=== PATIENT | female | born 1990 | race Asian ===

== ENCOUNTER 2021-12-16 12:01 | Outpatient (REF) | payer OTHER, SELFPAY ==
[2021-12-16 12:08] LABS: MANUAL DIFF FLAG NO
[2021-12-16 12:41] LABS: Basophils Absolute Auto 0.1 X10*3/uL (0.0-0.2); Basophils Percent Auto 0.7 % (0-2); Eosinophils Absolute Auto 0.2 X10*3/uL (0.0-0.4); Hematocrit 43.1 % (37.0-47.0); Hemoglobin 14.1 g/dl (12.0-16.0); Imm Gran Abs Auto 0.02 X10*3/uL (0.00-0.03); Imm Gran Pct Auto 0.3 % (0.0-0.4); Lymphocytes Absolute Auto 3.2 X10*3/uL (1.2-4.9); Lymphocytes Percent Auto 42.6 % (20-40); Mean Corpuscular HGB Conc 32.7 g/dl (31.0-35.0); Mean Corpuscular Volume 91.7 fL (80.0-98.0); Mean Platelet Volume 12.1 fL (9.4-12.3); Monocytes Absolute Auto 0.4 X10*3/uL (0.1-1.2); Monocytes Percent Auto 5.1 % (2-11); Neutrophils Absolute Auto 3.7 x10*3/uL (2.0-8.3); Neutrophils Percent Auto 49.3 % (45-73); Platelet Count 243 X10*3/uL (160-400); Red Cell Distribution Width 13.4 % (11.0-16.0); White Blood Count 7.4 X10*3/uL (4.8-10.8)
[2021-12-16 13:16] LABS: Alanine Aminotransferase 14 U/L (0-31); Alkaline Phosphatase 39 U/L (39-117); Anion Gap 11 (12-20); Aspartate Amino Transferase 17 U/L (5-31); Bilirubin Total 0.7 mg/dL (0.0-1.0); Blood Urea Nitrogen 12 mg/dL (9-16); Calcium 9.7 mg/dL (8.4-10.2); Carbon Dioxide 26 mmol/L (22-29); Chloride 105 mmol/L (96-108); Cholesterol 181 mg/dL; Estimated Glomerular Filt Rate > 60; Glucose Fasting 89 mg/dL (60-99); HDL Cholesterol 69 mg/dL; LDL Cholesterol Calculated 91 mg/dl; Potassium 4.2 mmol/L (3.3-5.1); Sodium 138 mmol/L (135-145); Total Protein 7.2 g/dL (6.5-8.0); Triglycerides 105 mg/dL
[2021-12-16 13:36] LABS: TSH reflex Free T4 1.03 uIU/mL (0.32-4.0)
== END 2021-12-16 12:02 | disposition home or self-care (01) ==
LOC: HO.LAB 12:01
PROVIDERS: PCP Family Medicine; Visit Provider Family Medicine
DX: Z00.00 Encounter for general adult medical examination without abnormal findings (principal)
CPT/HCPCS: 36415; 80053; 80061; 84443; 85025

== ENCOUNTER 2022-04-24 22:44 | Emergency (ER) | payer OTHER, SELFPAY ==
[2022-04-24 22:50] VITALS: BP 129/73; PULSE 90; O2SAT 98
== END 2022-04-25 00:22 | disposition left against medical advice (07) ==
LOC: HO.ED 04-25 00:06
PROVIDERS: Emergency Provider Emergency Medicine
DX: Z04.1 Encounter for examination and observation following transport accident (principal)

== ENCOUNTER 2022-04-27 16:07 | Outpatient (REF) | payer OTHER, SELFPAY ==
--- NOTE | ~2022-04-27 | XR_ITS ---
EXAMINATION: XR KNEE, RIGHT CLINICAL INFORMATION: Right knee pain. COMPARISON: None TECHNIQUE: Four views of the right knee. FINDINGS: Bones and soft tissues are normal. No fracture or joint effusion. Alignment is anatomic. Joint spaces are well maintained. No abnormal soft tissue calcification. XR/XR knee RT 4V IMPRESSION: Unremarkable right knee.
--- NOTE | ~2022-04-27 | XR_ITS ---
EXAMINATION: XR CERVICAL SPINE CLINICAL INFORMATION: Neck pain. COMPARISON: None TECHNIQUE: 3 views of the cervical spine were obtained. FINDINGS: There is straightening of the normal cervical lordosis with normal spinal alignment. The vertebral bodies and intervertebral disc spaces are unremarkable. Some acute fracture. The odontoid process appears intact. The soft tissues are unremarkable. XR/XR cervical spine 3V IMPRESSION: Straightening of the normal cervical lordosis may be secondary to positioning and/or muscle spasm.
== END 2022-04-27 16:08 | disposition home or self-care (01) ==
LOC: HO.HMGCX 16:07
PROVIDERS: PCP Family Medicine; Visit Provider Physician Assistant
DX: S13.4XXA Sprain of ligaments of cervical spine, initial encounter (principal); M25.561 Pain in right knee
CPT/HCPCS: 72040; 73564

== ENCOUNTER 2022-12-28 08:31 | Outpatient (REF) | payer OTHER, SELFPAY ==
[2022-12-28 08:48] LABS: MANUAL DIFF FLAG NO
[2022-12-28 09:04] LABS: Basophils Percent Auto 0.5 % (0-2); Eosinophils Absolute Auto 0.1 X10*3/uL (0.0-0.4); Eosinophils Percent Auto 0.8 % (0-4); Hematocrit 44.5 % (37.0-47.0); Hemoglobin 14.5 g/dl (12.0-16.0); Imm Gran Abs Auto 0.02 X10*3/uL (0.00-0.03); Imm Gran Pct Auto 0.3 % (0.0-0.4); Lymphocytes Absolute Auto 2.6 X10*3/uL (1.2-4.9); Lymphocytes Percent Auto 35.5 % (20-40); Mean Corpuscular HGB Conc 32.6 g/dl (31.0-35.0); Mean Corpuscular Hemoglobin 29.3 pg (27.0-33.0); Mean Corpuscular Volume 89.9 fL (80.0-98.0); Mean Platelet Volume 11.5 fL (9.4-12.3); Monocytes Absolute Auto 0.4 X10*3/uL (0.1-1.2); Monocytes Percent Auto 4.7 % (2-11); Neutrophils Absolute Auto 4.3 x10*3/uL (2.0-8.3); Neutrophils Percent Auto 58.2 % (45-73); Platelet Count 240 X10*3/uL (160-400); Red Blood Count 4.95 X10*6/uL (4.20-5.50); Red Cell Distribution Width 13.2 % (11.0-16.0); White Blood Count 7.4 X10*3/uL (4.8-10.8)
[2022-12-28 09:52] LABS: Alanine Aminotransferase 20 U/L (0-31); Albumin Level 3.7 g/dL (3.5-5.0); Alkaline Phosphatase 34 U/L (39-117); Anion Gap 11 (12-20); Aspartate Amino Transferase 24 U/L (5-31); Bilirubin Total 0.4 mg/dL (0.0-1.0); Blood Urea Nitrogen 12 mg/dL (9-16); Calcium 9.2 mg/dL (8.4-10.2); Carbon Dioxide 26 mmol/L (22-29); Chloride 106 mmol/L (96-108); Cholesterol 152 mg/dL; Estimated Glomerular Filt Rate > 60; Glucose Fasting 93 mg/dL (60-99); HDL Cholesterol 53 mg/dL; LDL Cholesterol Calculated 82 mg/dl; Potassium 4.7 mmol/L (3.3-5.1); Sodium 138 mmol/L (135-145); Total Protein 6.6 g/dL (6.5-8.0); Triglycerides 87 mg/dL
== END 2022-12-28 08:32 | disposition home or self-care (01) ==
LOC: HO.LAB 08:31
PROVIDERS: PCP Family Medicine; Visit Provider Family Medicine
DX: Z00.00 Encounter for general adult medical examination without abnormal findings (principal)
CPT/HCPCS: 36415; 80053; 80061; 84443; 85025

== ENCOUNTER 2023-07-30 12:04 | Outpatient (AMB) | payer OTHER, SELFPAY ==
[2023-07-30 12:16] VITALS: BP 106/66; PULSE 99; RESP 13; TEMP 37.2; O2SAT 99; BMI 28.2
--- NOTE | 2023-07-30 12:16 | MHC.PC.OV ---
Vital Signs 07/30/23 12:16 Height 5 ft 1 in Weight 149 lb 2 oz BMI 28.2 BP 106/66 Blood Pressure Location Rt brachial Position Sitting Respiration 13 Pulse 99 Pulse Source Pulse Oximeter Temp 98.9 F Temp Source Oral Pulse Oximetry (%) 99 Oxygen Delivery Method Room Air Intake Visit Reasons: lump on breast Intake Note: Patient reports she found a small lump on her right breast ~1 month ago. Patient reports she had a biopsy performed on that breast before with benign results and she would just like to ensure she doesn't need any further workup. Gas Manager Required: No Accompanied by: Self / Same As Patient Allergies house dust mite Allergy (Mild, Verified 07/30/23 12:26) sneezing, watery eyes. Tobacco use date assessed: 07/30/23 Dental Screening Dental Screen Date: 07/30/23 Did you have a dental visit in the last 12 months?: Yes Did you have a dental problem in the last 6 months where you did not have access to dental care?: No Was dental information given to patient?: Patient has dentist HPI lump on breast HPI Details 32 y/o female presents today with complaints of a lump on her breast. Patient reports she found a small lump on her right breast ~1 month ago. Patient reports she had a biopsy performed on that breast before with benign results and she would just like to ensure she doesn't need any further workup. She denies any pain or any other additional changes. [facility] Surgical History Fibroadenoma History of section Family History Father HTN (hypertension) Mother No problems noted. Maternal Grandfather No problems noted. Maternal Grandmother No problems noted. Paternal Grandfather No problems noted. Paternal Grandmother No problems noted. Brother No problems noted. Brother No problems noted. Brother No problems noted. Sister No problems noted. Son No problems noted. Sister Asthma Social History (Updated 07/30/23 @ 12:23 by Sherin Trejo CMA) Household Members: Family and Children Housing: House Alcohol intake: never Patient Tobacco Use Status: Never used Tobacco e-Cigarette/Vaping Use: Never Used Second Hand Smoke Exposure: No Use of substances other than those prescribed or required for medical reasons: No Have you been hit, kicked, punched, or otherwise hurt by someone within the past year? If so, by whom?: No Do you feel safe in your current relationship?: Yes Is there a partner from a previous relationship who is making you feel unsafe now?: No Are you made to feel afraid or neglected: No service: No Current occupational status: unemployed Current occupational exposures/hazards: No Sexually active: Yes Sexual orientation: Unable to collect Gender identity: Unable to collect Cognitive needs: No Hearing needs: No Vision needs: No Questionnaire PHQ-9 Over the last 2 weeks, how often have you been bothered by any of the following problems? 1. Little interest or pleasure in doing things: not at all 2. Feeling down, depressed, or hopeless: not at all 3. Trouble falling or staying asleep, or sleeping too much: not at all 4. Feeling tired or having little energy: not at all 5. Poor appetite or overeating: not at all 6. Feeling bad about yourself - or that you are a failure or have let yourself or your family down: not at all 7. Trouble concentrating on things, such as reading the newspaper or watching television: not at all 8. Moving or speaking so slowly that other people could have noticed. Or the opposite - being so fidgety or restless that you have been moving around a lot more than usual: not at all 9. Thoughts that you would be better off or of hurting yourself in some way: not at all Total score: 0 Depression Screening Interpretation: Negative Depression Screening Done: Yes 31240 - PHQ-9 Billing: Yes Source: Developed by Drs. Wai Guzmán, Felicia Quintana, Angel Ray and colleagues, with an educational greg from [employer]. Thrive Questionnaire Date Thrive assessed: 07/30/23 I am a: Patient What is your living situation today?: I have a steady place to live Within the past 12 months, did the food you bought not last and you didn't have the money to get more?: Never true Within the past 12 months, did you worry whether your food would run out before you got money to buy more?: Never true Do you have trouble paying for medicines?: No Do you have trouble getting transportation to medical appointments?: No Do you have trouble paying your heating and electricity bill?: No Do you have trouble taking care of your child, family member or friend?: No Do you have trouble with day-to-day activities such as bathing, preparing meals, shopping, managing finances, etc.?: No Are you currently unemployed and looking for a job?: No Are you interested in more education?: No Please select the resources that you would like help with: None Currently or been in a relationship where the following occur: no concerns reported AUDIT C Alcohol Use Questionnaire (AUDIT-C) 1. How often do you have a drink containing alcohol?: Never 3. How often do you have six or more drinks on one occasion?: Never Total Score: 0 PHILIP-7 AMB Questionnaire PHILIP-7 Date PHILIP - 7 assessed: 07/30/23 Feeling nervous, anxious, or on edge: 0 = Not at all Not being able to stop or control worryin = Not at all Worrying too much about different things: 0 = Not at all Trouble relaxin = Not at all Being so restless that it is hard to sit still: 0 = Not at all Becoming easily annoyed or irritable: 0 = Not at all Feeling afraid as if something awful might happen: 0 = Not at all Total PHILIP-7 score (0-4 normal; 5-9 mild; 10-14 moderate; 15-21 severe): 0 Source: Developed by Drs. Wai Guzmán, Felicia Quintana, Angel Ray and colleagues, with an educational greg from [employer]. PHILIP-7 Assessment Billing PHILIP-7 Assessment Tool: PHILIP-7 Assessment 79084 Physical exam (Primary Care) Vital Signs: Last Vital Signs Temp 98.9 F 07/30/23 12:16 Pulse 99 07/30/23 12:16 Resp 13 07/30/23 12:16 BP 106/66 07/30/23 12:16 Pulse Ox 99 07/30/23 12:16 Oxygen Delivery Method Room Air 07/30/23 12:16 BMI result Body Mass Index 28.2 Tobacco/Smoking Status: Tobacco use Status Tobacco use date assessed 07/30/23 07/30/23 12:24 Patient Tobacco Use Status Never used Tobacco 07/30/23 12:24 e-Cigarette/Vaping Use Never Used 07/30/23 12:24 PHQ-9: PHQ-9 Score PHQ-9: Total score 0 07/30/23 12:24 Depression Screening Interpretation: Negative Thrive Assessment: Date of Thrive Assessment Date Thrive assessed 07/30/23 07/30/23 12:24 Currently or been in a relationship where the following occur: no concerns reported Assessment and Plan Assessment & Plan (1) Lump, breast: Code(s): N63.0 - Unspecified lump in unspecified breast (2) Subcutaneous nodule of chest wall: Code(s): R22.2 - Localized swelling, mass and lump, trunk Plan: Subcutaneous?nodule?or?cyst?of?chest?wall?slightly?inferior?and?lateral?to?right?breast Check?ultrasound If?any?further?concern?regarding?breast?tissue?involvement,?will?get?diagnostic?mammogram?and?ultrasound?of?breast Orders: Orders US chest Today R22.2 - Localized swelling, mass and lump, trunk Coding Level of Care Code Est Pt Level 3 (97902) Diagnoses Lump, breast N63.0 Subcutaneous nodule of chest wall R22.2 Additional Codes PHILIP-7 Assessment Billing - PHILIP-7 Assessment Tool: PHILIP-7 Assessment 30013 ([id number])
== END 2023-07-30 13:05 | disposition home or self-care (01) ==
PROVIDERS: PCP Family Medicine; Visit Provider Family Medicine
DX: N63.0 Unspecified lump in unspecified breast (principal); R22.2 Localized swelling, mass and lump, trunk
CPT/HCPCS: 99213

== ENCOUNTER 2023-09-29 14:27 | Outpatient (REF) | payer OTHER, SELFPAY | END 2023-09-29 14:28 | disposition home or self-care (01) | LOC: HO.MAMMO 14:27 | PROVIDERS: PCP Family Medicine; Visit Provider Family Medicine | DX: N63.10 Unspecified lump in the right breast, unspecified quadrant (principal) | CPT/HCPCS: 76642; 77062; 77066 ==

== ENCOUNTER → 2023-09-29 15:00 | Outpatient (BNV) | payer OTHER, SELFPAY | PROVIDERS: PCP Family Medicine; Visit Provider Radiology Diagnostic Radiology | DX: N63.15 Unspecified lump in the right breast, overlapping quadrants (principal) | CPT/HCPCS: 76642; 77062; 77066 ==

== ENCOUNTER 2024-02-10 08:53 | Outpatient (AMB) | payer OTHER, SELFPAY ==
[2024-02-10 08:53] VITALS: BP 118/80; PULSE 79; TEMP 36.2; O2SAT 99; BMI 28.3
--- NOTE | 2024-02-10 08:53 | AM.OFFWIN_ITS ---
Intake Vital Signs 02/10/24 08:53 Height 5 ft 1 in Weight 150 lb BMI 28.3 BP 118/80 Blood Pressure Location Lt brachial Position Sitting Pulse 79 Pulse Source Pulse Oximeter Temp 97.1 F Temp Source Temporal Artery Scan Pulse Oximetry (%) 99 Oxygen Delivery Method Room Air Intake Visit Reasons: EST/left side pain (lobby) Intake Note: pt is here today lft side pain started 1 week ago Patient Tobacco Use Status: Never used Tobacco Allergies house dust mite Allergy (Mild, Verified 02/10/24 08:58) sneezing, watery eyes. Do you need a note to return to daycare/school/sports/work: No HPI HPI Comments History of Present Illness Details This is a healthy 33-year-old female who presented to the walk-in clinic complaining of left-sided chest pain x 1 week. Patient states this pain is localized to her left lower rib area and does not radiate into her arm, jaw, neck, or back. She states the pain is sharp in nature. She states the pain is brought on by certain movements such as lifting her arm or turning over in bed. She states she started to develop some very mild shortness of breath as well as a cough over the past several days. She denies any associated nausea/vomiting. She denies any estrogen use. She denies any recent travel/surgery. She denies any lower extremity edema. She denies any associated nausea/vomiting/diarrhea, fever/chills, dysuria/hematuria, or urinary frequency/urgency. She denies any past medical history including hypertension, hyperlipidemia, diabetes, or cardiac disease. She denies any trauma to the area. Patient is active and goes to the gym daily. [facility] Surgical History Fibroadenoma History of section Family History Father HTN (hypertension) Mother No problems noted. Maternal Grandfather No problems noted. Maternal Grandmother No problems noted. Paternal Grandfather No problems noted. Paternal Grandmother No problems noted. Brother No problems noted. Brother No problems noted. Brother No problems noted. Sister No problems noted. Son No problems noted. Sister Asthma Social History (Updated 07/30/23 @ 12:23 by Sherin Trejo [facility]) Household Members: Family and Children Housing: House Alcohol intake: never Patient Tobacco Use Status: Never used Tobacco e-Cigarette/Vaping Use: Never Used Second Hand Smoke Exposure: No service: No Current occupational status: unemployed Current occupational exposures/hazards: No Sexual orientation: Unable to collect Gender identity: Unable to collect Cognitive needs: No Hearing needs: No Vision needs: No Review of Systems Const All systems reviewed & are unremarkable except as noted in HPI and below Reports no additional complaints Eyes Reports no additional complaints ENT Reports no additional complaints Card Reports no additional complaints Resp Reports no additional complaints GI Reports no additional complaints Reports no additional complaints Musc Reports no additional complaints Skin/Breast Reports system reviewed and no additional complaints, except as documented Neuro Reports no additional complaints Psych Reports no additional complaints Endo Reports no additional complaints Howard/Lymph Reports no additional complaints Aller/Immun Reports no additional complaints Physical Exam Vital Signs: Last Vital Signs Temp 97.1 F 02/10/24 08:53 Pulse 79 02/10/24 08:53 BP 118/80 02/10/24 08:53 Pulse Ox 99 02/10/24 08:53 Oxygen Delivery Method Room Air 02/10/24 08:53 BMI result Body Mass Index 28.3 Const Other: Vital signs reviewed. Constitutional: Non-toxic appearing. No acute distress. Well-developed and well-nourished. HEENT: Normocephalic and atraumatic. Skin: Warm and dry. No rashes or lesions noted. Neck: Full and painless range of motion. No cervical lymphadenopathy. Cardio: Regular rate and rhythm. No murmurs, gallops, or rubs. No lower extremity edema. No JVD. Pulmonary: No respiratory distress. No accessory muscle usage. Clear to auscultation bilaterally without wheezing, crackles, or rhonchi. Gastrointestinal: Soft, nontender, and nondistended in all 4 quadrants. Normoactive bowel sounds in all 4 quadrants. Musculoskeletal: Normal range of motion in joints throughout the body. No deformity or other signs of injury. No bony/focal tenderness to palpation. Neuro: Alert and oriented x4. Cranial nerves 2-12 grossly intact. No focal deficits appreciated. Psych: Normal mood and affect. Office Procedures EKG Details: Normal sinus rhythm with sinus arrhythmia, no acute ischemic changes, no ST-T wave changes, no ST elevations [id number], Complete Assessment & Plan Assessment & Plan (1) Chest pain: Code(s): R07.9 - Chest pain, unspecified Qualifiers: Chest pain type: unspecified Qualified Code(s): R07.9 - Chest pain, unspecified Plan: This is a 33-year-old female who is otherwise healthy who presented to the walk- in clinic complaining of left-sided chest pain x1 week. The patient's chest pain is atypical in nature given it is located in her left lower chest wall, it does not radiate, it is occasionally non-exertional, and it is not associated with nausea/vomiting or diaphoresis. The patient has no cardiac risk factors identified. An EKG was obtained, which showed normal sinus rhythm with sinus arrhythmia without any acute ischemic changes. She is PERC negative so pulmonary embolism is unlikely. She has no abdominal symptoms or urinary symptoms to suggest a GI pathology. I obtained a chest x-ray, which was negative for pneumothorax, pleural effusion, pneumonia, for acute bony abnormality on my read although official read is still pending. The patient very likely could have acute costochondritis versus precordial catch syndrome causing her chest pain. Sent a prescription for p.o. ibuprofen 800 mg 3 times daily every 8 hours as needed as well as p.o. methocarbamol 750 mg 3 times daily as needed for muscle spasms. Patient was made aware that methocarbamol can be slightly sedating so she was encouraged to try this medication tonight and if it makes her drowsy, she should not take it during the day. Patient verbalized her understanding and she is in agreement with the plan. Patient felt reassured and was very appreciative of the workup today. Orders: Orders XR chest 2V Today R05.9 - Cough, unspecified AMB EKG-In Office Today R07.9 - Chest pain, unspecified Medications: New ibuprofen 800 mg PO Q8H PRN 30 tabs 0RF pain methocarbamol 750 mg PO TID PRN 20 tabs 0RF Muscle spasms Coding Level of Care Code Est Pt Level 3 (67670) Diagnoses Chest pain, unspecified type R07.9 Chest pain type: unspecified CPT Codes EKG - CPT: 27397-[id number], Complete ([id number])
== END 2024-02-10 10:21 | disposition home or self-care (01) ==
PROVIDERS: PCP Family Medicine; Visit Provider Physician Assistant Medical
DX: R07.9 Chest pain, unspecified (principal)
CPT/HCPCS: 93000; 99213

== ENCOUNTER 2024-02-10 09:36 | Outpatient (REF) | payer OTHER, SELFPAY ==
--- NOTE | ~2024-02-10 | XR_ITS ---
EXAMINATION: XR CHEST CLINICAL INFORMATION: Cough COMPARISON: None available. TECHNIQUE: 2 views of the chest were obtained. FINDINGS: No significant abnormality is noted involving the heart, lungs, mediastinum, bony thorax or soft tissues. XR/XR chest 2V IMPRESSION: Unremarkable examination.
== END 2024-02-10 09:37 | disposition home or self-care (01) ==
LOC: HO.HMGCX 09:36
PROVIDERS: PCP Family Medicine; Visit Provider Physician Assistant Medical
DX: R05.9 Cough, unspecified (principal)
CPT/HCPCS: 71046

== ENCOUNTER 2024-10-23 10:28 | Outpatient (AMB) | payer OTHER, SELFPAY ==
--- NOTE | 2024-10-23 10:32 | A.OFFPC_ITS ---
Vital Signs 10/23/24 10:38 Height 5 ft 1 in Weight 155 lb 2 oz BMI 29.3 BP 104/68 Blood Pressure Location Lt brachial Position Sitting Respiration 12 Pulse 82 Pulse Source Pulse Oximeter Temp 98.1 F Temp Source Oral Pulse Oximetry (%) 98 Oxygen Delivery Method Room Air Intake Visit Reasons: control Intake Note: annual cpe and control Business Planning Analyst Required: No Allergies house dust mite Allergy (Mild, Verified 10/23/24 11:09) sneezing, watery eyes. Medication List - Last Reconciled 10/23/24 by Yue Kwok, [facility]- norgestimate-ethinyl estradiol 0.25-35 mg-mcg tabs PO DAILY Tobacco use date assessed: 10/23/24 Dental Screening Dental Screen Date: 10/23/24 Did you have a dental visit in the last 12 months?: Yes Did you have a dental problem in the last 6 months where you did not have access to dental care?: No Was dental information given to patient?: Patient has dentist HPI HPI Comments History of Present Illness Details History of Present Illness The patient is a 34-year-old female presenting for a complete physical examination and a refill of her control prescription. Her history includes uncertainty regarding her prior obstetric provider, as her previous OBGYN clinic closed down unexpectedly. The patient mentioned she has been without control for approximately one month due to issues obtaining an appointment with another provider. A urine test conducted today was negative. She previously tolerated control without issue and reported her menstrual cycle is sometimes irregular, with her last expected period being due the day before the visit.. 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 Her last Pap smear was performed approximately two years ago, with normal results. Tdap UTD, declined flu Wears glasses eye exam UTD Social History - The patient is a mother of two childre n, aged 12 years and 4 years, and is also involved in foster care. - Regular physical activity is maintaine d through the use of a home gym, and she exercises almost daily. - The patient reports that she does not currently drink alcohol or smoke. 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 Exam: General: Well developed, well nourished, in no acute distress. Appears stated age. Head: Normocephalic, atraumatic. Eyes: Pupils are equal, round and reactive to light and accommodation. Conjunctivae are clear. Vision grossly normal. Ears: TMs clear AU, EACS WNL Nose: Patent, without discharge. Mouth: There are no ulcers or lesions noted. No inflammation, no post nasal drip, no plaques nor exudates. Neck: Supple, no adenopathy or thyromegaly. Lungs: Clear to auscultation bilaterally. No rales, rhonchi or wheeze noted. Good air flow in all mckinney. Heart: Regular rate and rhythm. No murmurs, click, rubs or gallops are noted. Abdomen: Bowel sounds present in all quadrants. The abdomen is soft, nontender, with no masses or organomegaly noted. No hernias are noted. Musculoskeletal: Joints are nontender, without swelling, redness, or effusions. Range of motion is observed to be normal. Pulses: Peripheral pulses are equal and palpable bilaterally. Extremities: No clubbing, cyanosis nor edema is noted. Neurologic: Gait and station normal. Cranial Nerves 2-12 intact. Motor strength grossly symmetrical and intact. No sensory loss. Balance normal. Skin: No rashes, ulcers, or lesions noted. Turgor is good. Skin color is good. Hair and nails are without abnormalities. Psych: Normal eye contact, affect and mood appropriate, and normal interactions. Patient is alert and appropriate to context. Results - Urine Test: Negative - Vision see results Discussion Notes During the visit, I discussed the patient's need for a control prescription refill, given her difficulty accessing previous healthcare providers who have closed or have significant wait times. I emphasized the importance of maintaining consistent control and arranged to send the prescription to her preferred pharmacy. We addressed her overdue routine Pap smear, discussing the necessity of establishing ongoing gynecological care. I offered to place a referral to [facility] for her future women's wellness appointments. The patient was informed about the patient portal for ease of communication and encouraged to sign up for continuous access to care services. Deferred labs as she has had normal labs in 2019 through 2022 and has no high-risk indications to repeat the labs. I also provided guidance regarding the yearly scheduling of physical exams to maintain her status as an active patient. The patient expressed understanding and agreement. Patient Instructions - [facility] control [facility] [address] in [place]. - Sign up for the patient portal to mimi periera communication and medication refills. - Schedule a routine gynecological appoi ntment with [facility]. - Continue with regular physical exams a nd routine health maintenance. - Engage in regular physical activity an d maintain current healthy lifestyle habits. Plan - Refill control prescription and send it to [facility], as requested. - Referral to [facility] for OBGYN for routine women's wellness care, including Pap smears. - Educate the patient on using the Mobile Authentication[employer] nt portal for ease of communication and management of future healthcare needs. - Encourage ongoing physical activity an d a healthy lifestyle. - Provide a printed verification of the physical exam for foster care requirements. - Monitor menstrual cycle irregularities and consider further evaluation if irregularities persist. - Recommend scheduling a yearly physical exam to maintain continuity of care. Patient was informed and verbally consented to the use of an ambient scribe for clinic note documentation during this visit. [facility] Medical History (Updated 10/23/24 @ 11:13 by Yue Kwok [facility]) No pertinent past medical history Surgical History Fibroadenoma History of section Family History Father HTN (hypertension) Mother No problems noted. Maternal Grandfather No problems noted. Maternal Grandmother No problems noted. Paternal Grandfather No problems noted. Paternal Grandmother No problems noted. Brother No problems noted. Brother No problems noted. Brother No problems noted. Sister No problems noted. Son No problems noted. 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 1. Little interest or pleasure in doing things: not at all 2. Feeling down, depressed, or hopeless: not at all 3. Trouble falling or staying asleep, or sleeping too much: not at all 4. Feeling tired or having little energy: not at all 5. Poor appetite or overeating: not at all 6. Feeling bad about yourself - or that you are a failure or have let yourself or your family down: not at all 7. Trouble concentrating on things, such as reading the newspaper or watching television: not at all 8. Moving or speaking so slowly that other people could have noticed. Or the opposite - being so fidgety or restless that you have been moving around a lot more than usual: not at all 9. Thoughts that you would be better off or of hurting yourself in some way: not at all Total score: 0 Depression Screening Interpretation: Negative Depression Screening Done: Yes 26682 - PHQ-9 Billing: Yes Source: Developed by Drs. Wai Guzmán, Felicia Quintana, Angel Ray and colleagues, with an educational greg from [employer]. Thrive Questionnaire Date Thrive assessed: 10/23/24 I am a: Patient What is your living situation today?: I have a steady place to live Within the past 12 months, did the food you bought not last and you didn't have the money to get more?: Never true Within the past 12 months, did you worry whether your food would run out before you got money to buy more?: Never true Do you have trouble paying for medicines?: No Do you have trouble getting transportation to medical appointments?: No Do you have trouble paying your heating and electricity bill?: No Do you have trouble taking care of your child, family member or friend?: No Do you have trouble with day-to-day activities such as bathing, preparing meals, shopping, managing finances, etc.?: No Are you currently unemployed and looking for a job?: No Are you interested in more education?: No Please select the resources that you would like help with: None Currently or been in a relationship where the following occur: No concerns reported THRIVE Score: 0 AUDIT C Alcohol Use Questionnaire (AUDIT-C) 1. How often do you have a drink containing alcohol?: Never 3. How often do you have six or more drinks on one occasion?: Never Total Score: 0 Score Reviewed/Action Taken: Yes PHILIP-7 AMB Questionnaire PHILIP-7 Date PHILIP - 7 assessed: 10/23/24 Feeling nervous, anxious, or on edge: 0 = Not at all Not being able to stop or control worryin = Not at all Worrying too much about different things: 0 = Not at all Trouble relaxin = Not at all Being so restless that it is hard to sit still: 0 = Not at all Becoming easily annoyed or irritable: 0 = Not at all Feeling afraid as if something awful might happen: 0 = Not at all Total PHILIP-7 score (0-4 normal; 5-9 mild; 10-14 moderate; 15-21 severe): 0 Source: Developed by Drs. Wai Guzmán, Felicia Quintana, Angel Ray and colleagues, with an educational greg from [employer]. PHILIP-7 Assessment Billing PHILIP-7 Assessment Tool: PHILIP-7 Assessment 15802 Physical exam (Primary Care) Vital Signs: Last Vital Signs Temp 98.1 F 10/23/24 10:38 Pulse 82 10/23/24 10:38 Resp 12 10/23/24 10:38 BP 104/68 10/23/24 10:38 Pulse Ox 98 10/23/24 10:38 Oxygen Delivery Method Room Air 10/23/24 10:38 BMI result Body Mass Index 29.3 Tobacco/Smoking Status: Tobacco use Status Tobacco use date assessed 10/23/24 10/23/24 10:37 Patient Tobacco Use Status Never used Tobacco 10/23/24 10:37 e-Cigarette/Vaping Use Never Used 10/23/24 10:37 PHQ-9: PHQ-9 Score PHQ-9: Total score 0 10/23/24 11:14 Depression Screening Interpretation: Negative Thrive Assessment: Date of Thrive Assessment Date Thrive assessed 10/23/24 10/23/24 10:37 Currently or been in a relationship where the following occur: No concerns reported Office Procedures Vision Screening Right Eye: 20/25 Left Eye: 20/25 Bilateral: 20/20 Color: Pass Corrected: Pass (wearing glasses) 25008 - Vision Screening Results AMB Test Urine AMB Test Urine Negative Last Edit by Ted Peterson MA on 10/23 11:16 Results Reviewed Results Reviewed: Laboratory Last Values Tst Clinic Negative 10/23/24 11:07 Coding Level of Care Code Est Pt Prev Care 18-39y(48517) Diagnoses Adult general medical exam Z00.00 Influenza vaccination declined Z28.21 control counseling Z30.09 Screening for cervical cancer Z12.4 Encounter for vision screening Z01.00 CPT Codes Vision Screening - Vision Screenin - Vision Screening ([id number]) Additional Codes PHILIP-7 Assessment Billing - PHILIP-7 Assessment Tool: PHILIP-7 Assessment 83021 ([id number]) PHQ-9 - 45438 - PHQ-9 Billing: Yes ([id number]) Assessment & Plan Assessment & Plan (1) Adult general medical exam: Code(s): Z00.00 - Encounter for general adult medical examination without abnormal findings Category: Medical (2) Influenza vaccination declined: Code(s): Z28.21 - Immunization not carried out because of patient refusal Category: Medical (3) control counseling: Code(s): Z30.09 - Encounter for other general counseling and advice on contraception Category: Medical (4) Screening for cervical cancer: Code(s): Z12.4 - Encounter for screening for malignant neoplasm of cervix Category: Medical (5) Encounter for vision screening: Code(s): Z01.00 - Encounter for examination of eyes and vision without abnormal findings Category: Medical Plan . Orders: Orders AMB HCG Urine Test Today Z32.02 - Encounter for test, result negative Referrals [facility] [facility] Referral Z12.4 - Encounter for screening for malignant neoplasm of cervix Medications: New norgestimate-ethinyl estradiol 0.25-35 mg-mcg 1 tab PO DAILY 84 tabs 2RF Patient Instructions: Health screenings for women You should visit your health care provider from time to time, even if you are healthy. The purpose of these visits is to: Screen for medical issues Assess your risk for future medical problems Encourage a healthy lifestyle Update vaccinations and other preventive care services Help you get to know your provider in case of an illness Information Even if you feel fine, you should still see your provider for regular checkups. These visits can help you avoid problems in the future. For example, the only way to find out if you have high blood pressure is to have it checked regularly. High blood sugar and high cholesterol levels also may not have any symptoms in the early stages. A simple blood test can check for these conditions. There are specific times when you should see your provider or receive specific health screenings. The [place] Preventive Services Task Force publishes a list of recommended screenings. Below are screening guidelines for women ages 18 to 39. BLOOD PRESSURE SCREENING Your blood pressure should be checked at least once every 3 to 5 years if: Your blood pressure is in the normal range (top number less than 120 mm Hg and bottom number less than 80 mm Hg) You don't have risk factors for high blood pressure Ask your provider if you need your blood pressure checked more often if: The top number is 120 to 129 mm Hg or the bottom number is 70 to 79 mm Hg You have diabetes, heart disease, kidney problems, are overweight, or have certain other health conditions You have a first-degree relative with high blood pressure You are Black You had high blood pressure during a If the top number is 130 mm Hg or greater or the bottom number is 80 mm Hg or greater, this is considered stage 1 hypertension. Schedule an appointment with your provider to learn how you can reduce your blood pressure. Watch for blood pressure screenings in your area. Ask your provider if you can stop in to have your blood pressure checked. BREAST CANCER SCREENING Experts do not agree about the benefits of breast self-exams in finding breast cancer or saving lives. Talk to your provider about what is best for you. A screening mammogram is not recommended for most women under age 40. Your provider may discuss and recommend mammograms, MRI scans, or ultrasounds if you have an increased risk for breast cancer, such as: A mother or sister who had breast cancer at a young age (most often starting screening earlier than the age the close relative was diagnosed) You carry a high-risk genetic marker CERVICAL CANCER SCREENING Cervical cancer screening should start at age 21 years unless your provider advises otherwise. After the first test: Women ages 21 through 29 should have a Pap test every 3 years. Exoprts do not agree on whether HPV testing is recommended for this age group. Women ages 30 through 65 should be screened with either a Pap test every 3 years or the HPV test every 5 years or both tests every 5 years (called cotesting ). Women who have been treated for precancer (cervical dysplasia) should continue to have Pap tests for 20 years after treatment or until age 65, whichever is longer. If you have had your uterus and cervix removed (total hysterectomy), and you have not been diagnosed with cervical cancer or precancer (high grade cervical neoplasia), you do not need cervical cancer screening. CHOLESTEROL SCREENING Cholesterol screening should begin at: Age 45 for women with no known risk factors for coronary heart disease Age 20 for women with known risk factors for coronary heart disease Repeat cholesterol screening should take place: Every 5 years for women with normal cholesterol levels More often if changes occur in lifestyle (including weight gain and diet) More often if you have diabetes, heart disease, kidney problems, or certain other conditions DIABETES SCREENING You should be screened for diabetes starting at age 35 and then repeated every 3 years if you have no risk factors for diabetes. Screening may need to start earlier and be repeated more often if you have other risk factors for diabetes, such as: You have a first degree relative with diabetes. You are overweight or have obesity. You have high blood pressure, prediabetes, or a history of heart disease. Screening for diabetes should be done if you are planning to become and you are overweight and have other risk factors such as high blood pressure. DENTAL EXAM Go to the dentist once or twice every year for an exam and cleaning. Your dentist will evaluate if you need more frequent visits. EYE EXAM Have an eye exam every 5 to 10 years before age 40. If you have vision problems, have an eye exam every 2 years or more often if recommended by your provider. You should have an eye exam that includes an examination of your retina (back of your eye) at least every year if you have diabetes. IMMUNIZATIONS Commonly needed vaccines include: Flu shot: get one every year. COVID-19 vaccine: ask your provider what is best for you. Tetanus-diphtheria and acellular pertussis (Tdap) vaccine: have one at or after age 19 as one of your tetanus-diphtheria vaccines if you did not receive it as an adolescent. Tetanus-diphtheria: have a booster (or Tdap) every 10 years. Varicella vaccine: receive 2 doses if you never had chickenpox or the varicella vaccine. Hepatitis B vaccine: receive 2, 3, or 4 doses, depending on your exact circumstances. Measles, mumps, and rubella (MMR) vaccine: receive 1 to 2 doses if you are not already immune to MMR. Your provider can tell you if you are immune. Ask your provider about the human papillomavirus (HPV) vaccine if: You have not received the HPV vaccine in the past You have not completed the full vaccine series (you should catch up on this shot) Ask your provider if you should receive other immunizations if you have certain health problems that increase your risk for some diseases such as pneumonia. INFECTIOUS DISEASE SCREENING Women who are sexually active should be screened for chlamydia and gonorrhea up until age 25. Women 25 years and older should be screened for chlamydia and gonorrhea if at high risk. Screening for hepatitis C: All adults ages 18 to 79 should get a one-time test for hepatitis C. people should be screened at every . Screening for human immunodeficiency virus (HIV): All people ages 15 to 65 should get a one-time test for HIV. Depending on your lifestyle and medical history, you may also need to be screened for infections such as syphilis and HIV, as well as other infections. PHYSICAL EXAM All adults should visit their provider from time to time, even if they are healthy. The purpose of these visits is to: Screen for disease Assess your risk of future medical problems Encourage a healthy lifestyle Update your vaccinations and other preventive care services Maintain a relationship with a provider in case of an illness Your height, weight, and BMI should be checked at every exam. During your exam, your provider may ask you about: Depression and anxiety Diet and exercise Alcohol and tobacco use Safety issues, such as using seat belts, smoke detectors, and intimate partner violence Your medicines and risk for interactions SKIN SELF-EXAM Your provider may check your skin for signs of skin cancer, especially if you're at high risk, such as if you: Have had skin cancer before Have close relatives with skin cancer Have a weakened immune system OTHER SCREENING Talk with your provider about colon cancer screening if you have a strong family history of colon cancer or polyps, or if you have had inflammatory bowel disease or polyps yourself. Routine bone density screening of women under 40 is not recommended.
[2024-10-23 10:38] VITALS: BP 104/68; PULSE 82; RESP 12; TEMP 36.7; O2SAT 98; BMI 29.3
== END 2024-10-23 11:24 | disposition home or self-care (01) ==
PROVIDERS: PCP Family Medicine; Visit Provider Nurse Practitioner Family
DX: Z00.00 Encounter for general adult medical examination without abnormal findings (principal); Z28.21 Immunization not carried out because of patient refusal; Z01.00 Encounter for examination of eyes and vision without abnormal findings; Z32.02 Encounter for pregnancy test, result negative

== ENCOUNTER → 2024-10-23 10:28 | Outpatient (BNVA) | payer OTHER, SELFPAY | PROVIDERS: PCP Family Medicine; Visit Provider Nurse Practitioner Family | DX: Z00.00 Encounter for general adult medical examination without abnormal findings (principal); Z28.21 Immunization not carried out because of patient refusal | CPT/HCPCS: 81025; 96127; 99395 ==